=== PATIENT | male | born 1955 | race Caucasian/White ===

== ENCOUNTER 2018-02-04 12:41 | Inpatient (IN) | payer OTHER ==
[~2018-02-04] VITALS: Ht 180.3 cm; Wt 89.0 kg
[~2018-02-04 12:41] MED LIST: ASPEC325 PO; GABA-112 PO; MULT-506 PO; OXYC1TAB3 PO; QUET1TAB32 PO; SERT-234 PO
[2018-02-04] MEDS ORDERED: MoRPHine SULFATE 4 MG/ML 1 ML CARP\\VIAL IV STA (14:24)
[2018-02-04 14:49] LABS: BASO % 0.4 %; BASO ABS # 0.05 K/uL (0-0.2); EOS % 1.4 %; EOS ABS # 0.18 K/uL (0-0.5); HEMATOCRIT 40.2 % (42-52); HEMOGLOBIN 13.6 g/dL (14.0-18.0); IG# 0.05 K/uL (0.00-0.02); LYMPH % 18.5 %; LYMPH ABS # 2.41 K/uL (1.2-3.4); MEAN CELL VOLUME 97.8 fL (80-100); MEAN CORPUSCULAR HEMOGLOBIN 33.1 pg (25-34); MEAN CORPUSCULAR HGB CONC 33.8 g/dl (32-36); MONO % 4.3 %; MONO ABS # 0.56 K/uL (0.11-0.59); NEUT ABS # 9.75 K/uL (1.4-6.5); PLATELET COUNT 247 K/uL (130-400); RED CELL DISTRIBUTION WIDTH CV 12.9 % (11.5-14.5); RED CELL DISTRIBUTION WIDTH SD 46.3 fL (36.4-46.3)
[2018-02-04 15:08] LABS: BLOOD UREA NITROGEN 10 mg/dl (7-18); CREATININE 0.99 mg/dl (0.60-1.40); GLUCOSE 98 mg/dl (70-99)
[2018-02-04 15:09] LABS: ALBUMIN 3.9 gm/dl (3.4-5.0); ALT/SGPT 26 U/L (12-78); CARBON DIOXIDE 22 mmol/L (21-32); POTASSIUM 3.8 mmol/L (3.5-5.1); SODIUM 140 mmol/L (136-145)
[2018-02-04 15:13] LABS: ALKALINE PHOSPHATASE 83 U/L (45-117); AST/SGOT 19 U/L (15-37)
--- NOTE | 2018-02-04 15:43 | DIAGNOSTIC IMAGING REPORT ---
SINGLE VIEW PELVIS; SINGLE VIEW RIGHT HIP CLINICAL HISTORY: Fall with right leg pain. FINDINGS: An AP portable view view of the pelvis with an AP portable view of the right hip are correlated with pelvic CT dated 11/13/2014. The skeletal structures are osteopenic. There is a comminuted intertrochanteric fracture of the right femur with angulation and mild overriding of fragments. There is mild medial distraction of the lesser trochanter. Overlying soft tissue edema is noted. No fracture is seen involving the bony pelvis or the partially imaged left hip. Mild arthritic change and joint space narrowing is seen in the hips. Lumbosacral spondylosis is partially visualized. IMPRESSION: There is an angulated intertrochanteric fracture of the right femur as above with overlying soft tissue edema. Electronically signed by: Robert Heller M.D. 02/04/2018 3:41 PM Dictated Date/Time: 02/04/2018 3:40 PM
--- NOTE | 2018-02-04 15:45 | DIAGNOSTIC IMAGING REPORT ---
SINGLE VIEW CHEST CLINICAL HISTORY: Trauma. FINDINGS: 2 portable left lateral decubitus chest radiographs are compared to study dated 07/09/2016 and correlated with chest CT dated 09/13/2015. The examination is degraded by portable technique and decubitus position in. The cardiomediastinal silhouette is grossly unremarkable. The lungs and pleural spaces appear clear. The right lung appears hyperlucent secondary to left lateral decubitus positioning. No pleural effusion or pneumothorax is seen. The skeletal structures are osteopenic. The bony thorax is grossly intact. Degenerative changes noted throughout the thoracic spine. IMPRESSION: No acute cardiopulmonary abnormality is identified noting a degraded examination due to decubitus positioning. Electronically signed by: Robert Heller M.D. 02/04/2018 3:44 PM Dictated Date/Time: 02/04/2018 3:42 PM
[2018-02-04] MEDS ORDERED: SODIUM CHLORIDE 0.9% 1000ML 1,000 ML IV STA (15:57)
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
[2018-02-04] MEDS ORDERED: LORAZEPAM 2 MG/ML 1 ML VIAL IV STA (17:24)
[2018-02-04] MEDS ORDERED: LORAZEPAM 2 MG/ML 1 ML VIAL ONE (17:39)
[2018-02-04] MEDS ORDERED: GABAPENTIN 600 MG TAB PO SCH (17:45)
[2018-02-04] MEDS ORDERED: ONDANSETRON INJ 2 MG/ML 2 ML VIAL IV PRN (17:45)
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
[2018-02-04 19:01] VITALS: BP 147/87; PULSE 76; TEMP 36.8; O2SAT 98; Ht 180.3 cm; Wt 89.0 kg
[2018-02-04] MEDS ORDERED: THIAMINE HCL 100 MG TAB PO ONE (19:11)
[2018-02-04] MEDS: MoRPHine SULFATE 2 MG/ML CARP IV PRN (19:30)
[2018-02-04] MEDS ORDERED: MULTI-VITAMIN INFUSION INJ 10 ML, THIAMINE HCL INJ 100 MG, FoLIC ACID INJ 1 MG in SODIU... IV ONE (19:30)
[2018-02-04] MEDS ORDERED: GABAPENTIN 1200MG LOADING DOSE PO ONE (20:00)
[2018-02-04] MEDS: NICOTINE 21 MG/24 HR TDSY TD SCH (20:02)
--- NOTE | 2018-02-04 20:31 | DIAGNOSTIC IMAGING REPORT ---
R FEMUR 2 VIEWS ROUTINE HISTORY: 62 years-old Male Assess AP and Lateral of entire femur. Apply traction before. Acute fracture of the right femur. Follow-up study. COMPARISON: Pelvis and right hip radiographs of same day at 3:07 PM TECHNIQUE: 2 views of the right femur with traction FINDINGS: There is decreased angulation of the acute intertrochanteric fracture of the right femur there is 10 mm medial displacement of the fracture without significant angulation. Soft tissue swelling about the right hip and lateral right thigh redemonstrated. The remainder of the right femur appears intact. Right knee total joint arthroplasty. Peripheral vascular disease. IMPRESSION: Acute mildly displaced intratrochanteric fracture of the right femur with decreased angulation from comparison. The above report was generated using voice recognition software. It may contain grammatical, syntax or spelling errors. Electronically signed by: Romero Wick M.D. 02/04/2018 8:30 PM Dictated Date/Time: 02/04/2018 8:28 PM
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
[2018-02-04 23:20] VITALS: BP 149/83; PULSE 97; TEMP 37.2; O2SAT 97
[2018-02-05] VITALS (11 sets, daily range): BP systolic 136–184; BP diastolic 73–101; PULSE 73–90; TEMP 36.6–37.2; O2SAT 97–100
[2018-02-05] MEDS: MoRPHine SULFATE 2 MG/ML CARP IV PRN ×6 (00:18→23:31)
[2018-02-05] MEDS: LORAZEPAM 2 MG/ML 1 ML VIAL IV PRN ×6 (00:55→23:31)
[2018-02-05 06:00] LABS: HEMOGLOBIN 10.7 g/dL (14.0-18.0); MEAN CELL VOLUME 99.1 fL (80-100); MEAN CORPUSCULAR HEMOGLOBIN 33.1 pg (25-34); MEAN CORPUSCULAR HGB CONC 33.4 g/dl (32-36); MEAN PLATELET VOLUME 9.9 fL (7.4-10.4); PLATELET COUNT 175 K/uL (130-400); RED CELL DISTRIBUTION WIDTH CV 13.1 % (11.5-14.5); RED CELL DISTRIBUTION WIDTH SD 47.2 fL (36.4-46.3); WHITE BLOOD COUNT 9.14 K/uL (4.8-10.8)
[2018-02-05] MEDS: GABAPENTIN 600MG Q6H DOSE PO SCH ×2 (06:08→07:59)
[2018-02-05 06:29] LABS: CALCIUM 7.5 mg/dl (8.5-10.1); CREATININE 0.9 mg/dl (0.60-1.40); POTASSIUM 3.6 mmol/L (3.5-5.1)
[2018-02-05] MEDS: THIAMINE HCL 100 MG TAB PO SCH (07:55)
[2018-02-05] MEDS: NICOTINE 21 MG/24 HR TDSY TD SCH (07:58)
--- NOTE | 2018-02-05 08:46 | PROGRESS NOTE ---
DATE: 02/05/2018 CHIEF COMPLAINT: Right intertrochanteric hip fracture. PROGRESS: Momo was seen and examined at bedside today. Overall, he is doing fairly well. He is awake and alert. He says he has some soreness in his hip. Otherwise, he is ready to proceed with surgery today. He had no acute events overnight and has no complaints. OBJECTIVE: Physical examination of the right hip: He is lying with the head of the bed elevated. There were no abrasions, lesions, lacerations of the skin around the right hip and he is neurovascularly intact. LABORATORY DATA: His current labs, he has an H and H of 10.7 and 32.0. His calcium is 7.5. His vital signs are relatively stable on room air. He is a little hypertensive. IMPRESSION: Right intertrochanteric hip fracture. PLAN: He is currently n.p.o. He has been admitted to the medical service and they have cleared him for intramedullary nail fixation of his right hip for today. He is currently on the schedule, probably to be done this afternoon. We will continue n.p.o. status until then.
[2018-02-05] MEDS: HYDROCODONE/ACETAMIN 5/325MG TAB PO PRN ×2 (10:47→21:40)
[2018-02-05] MEDS ORDERED: FENTANYL CITRATE INJ 50 MCG/1 ML 2 ML VIAL ONE (13:34)
[2018-02-05] MEDS ORDERED: MIDAZOLAM HCL 1 MG/ML 2ML VIAL ONE (13:35)
--- NOTE | 2018-02-05 14:43 | History & Physical Bridge Note ---
H&P Re-Evaluation Bridge Note: I have examined the patient, reviewed the History & Physical and in the interval since the performance of the History & Physical I have noted the following changes of clinical significance: No changes noted
[2018-02-05] MEDS ORDERED: BUPIVACAINE/EPINEPHRINE 0.5% MPF 1:200,000 30 ML VIAL ONE (14:45)
[2018-02-05] MEDS ORDERED: LIDOCAINE HCL 2% 2 ML VIAL (20MG/ML) ONE (15:40)
[2018-02-05] MEDS ORDERED: ONDANSETRON INJ 2 MG/ML 2 ML VIAL ONE (15:40)
[2018-02-05] MEDS ORDERED: PROPOFOL IV EMULSION 10 MG/ML 20 ML VIAL IV ONE (15:40)
--- NOTE | 2018-02-05 16:13 | [facility] Post Operative Brief Note ---
Immediate Operative Summary Operative Date Feb 05, 2018. Pre-Operative Diagnosis Displaced right intertrochanteric hip fracture Post-Operative Diagnosis Displaced right intertrochanteric hip fracture Procedure(s) Performed Right Long Trochanteric Nail Surgeon Dr. Toy Zepeda Supervisor Mending Surgeon(s) Semaj Castano PA-C Estimated Blood Loss 50cc Findings Consistent with Post-Op Diagnosis Fluids (cc crystalloids) 1000 cc Specimens None Drains None Anesthesia Type Spinal MAC Complication(s) none Disposition Accompanied Pt To Recover: no Disposition: Recovery Room / PACU
[2018-02-05] MEDS ORDERED: CEFAZOLIN IV 2,000 MG in DEXTROSE 5% 50ML 50 ML IV SCH (16:15)
[2018-02-05] MEDS ORDERED: VANCOMYCIN CONSULT ACTIVE PRN (16:15)
[2018-02-05] MEDS ORDERED: BISACODYL 10 MG SUPP PR PRN (16:15)
--- NOTE | 2018-02-05 16:44 | DIAGNOSTIC IMAGING REPORT ---
R HIP OR FILMS CLINICAL HISTORY: RT TROCH NAIL COMPARISON STUDY: Right femur radiographs February 05, 2018. FLUOROSCOPY TIME: 1 minute and 29 seconds. FINDINGS: 4 fluoroscopic images demonstrate placement of a trochanteric needle which fixates the intertrochanteric fracture of the right femur. Fracture alignment has improved and is now near anatomic. The hardware is intact. There are no unexpected radiopaque foreign bodies. Distal screw is noted. Right knee arthroplasty is partially imaged. IMPRESSION: Expected findings following internal fixation of the intertrochanteric fracture of the right femur. Electronically signed by: Oziel Franco M.D. 02/05/2018 4:43 PM Dictated Date/Time: 02/05/2018 4:42 PM
[2018-02-05] MEDS ORDERED: VANCOMYCIN IV 1,250 MG in SODIUM CHLORIDE 0.9% 250ML 250 ML IV SCH (16:45)
--- NOTE | 2018-02-05 16:57 | Anesthesiology Progress Note ---
Anesthesia Post Op Note Date & Time Feb 05, 2018 at 16:57 Vital Signs Pain Intensity: 0 Vital Signs Past 12 Hours Date Time Temp Pulse Resp B/P (MAP) Pulse Ox O2 Delivery O2 Flow Rate FiO2 02/05/18 16:55 37.2 68 16 147/88 100 Nasal Cannula 2 02/05/18 16:45 37.2 65 16 152/86 100 Nasal Cannula 2 02/05/18 16:35 66 16 152/86 100 Nasal Cannula 2 02/05/18 16:25 67 16 148/85 100 Nasal Cannula 2 02/05/18 16:16 36.9 74 16 140/81 100 Oxymask 10 02/05/18 12:06 36.8 88 20 158/101 (120) 99 Room Air 02/05/18 12:00 Room Air 02/05/18 08:00 Room Air 02/05/18 07:34 36.8 78 24 181/97 (125) 99 Room Air Notes Mental Status: alert / awake / arousable, participated in evaluation Pt Amnestic to Procedure: Yes Nausea / Vomiting: adequately controlled Pain: adequately controlled Airway Patency, RR, SpO2: stable & adequate BP & HR: stable & adequate Hydration State: stable & adequate Neuraxial Anesthesia: was administered, sensory block is resolving Anesthetic Complications: no major complications apparent
[2018-02-05] MEDS ORDERED: ATROPINE SULFATE 0.1 MG/ML 5ML SYR IV PRN (17:00)
[2018-02-05] MEDS ORDERED: EpHEDrine SULFATE INJ 50 MG/ML AMP IV PRN (17:00)
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
[2018-02-05] MEDS: DOCUSATE SODIUM/SENNA 50/8.6MG TAB PO SCH (21:08)
[2018-02-05] MEDS: GABAPENTIN 600MG Q8H DOSE PO SCH (21:39)
[2018-02-05] MEDS: CEFAZOLIN IV 2,000 MG in SYRINGE 0 ML IV SCH (23:51)
[2018-02-06] VITALS (7 sets, daily range): BP systolic 116–184; BP diastolic 67–104; PULSE 94–111; TEMP 36.7–37.4; O2SAT 97–100
[2018-02-06] MEDS: LORAZEPAM 2 MG/ML 1 ML VIAL IV PRN ×5 (02:04→21:47)
[2018-02-06] MEDS: HYDROCODONE/ACETAMIN 5/325MG TAB PO PRN (04:04)
[2018-02-06] MEDS: MoRPHine SULFATE 2 MG/ML CARP IV PRN ×5 (04:04→20:49)
[2018-02-06] MEDS: GABAPENTIN 600MG Q8H DOSE PO SCH ×2 (06:33→15:00)
[2018-02-06 06:38] LABS: HEMATOCRIT 28.4 % (42-52); HEMOGLOBIN 9.7 g/dL (14.0-18.0); MEAN CELL VOLUME 97.9 fL (80-100); MEAN CORPUSCULAR HEMOGLOBIN 33.4 pg (25-34); MEAN CORPUSCULAR HGB CONC 34.2 g/dl (32-36); MEAN PLATELET VOLUME 9.9 fL (7.4-10.4); PLATELET COUNT 153 K/uL (130-400); RED CELL DISTRIBUTION WIDTH CV 12.8 % (11.5-14.5); RED CELL DISTRIBUTION WIDTH SD 45.7 fL (36.4-46.3); WHITE BLOOD COUNT 11.16 K/uL (4.8-10.8)
[2018-02-06 07:08] LABS: CALCIUM 8.3 mg/dl (8.5-10.1); CREATININE 0.93 mg/dl (0.60-1.40)
[2018-02-06] MEDS: THIAMINE HCL 100 MG TAB PO SCH (07:59)
[2018-02-06] MEDS: NICOTINE 21 MG/24 HR TDSY TD SCH (07:59)
[2018-02-06] MEDS: CEFAZOLIN IV 2,000 MG in SYRINGE 0 ML IV SCH (08:04)
--- NOTE | 2018-02-06 08:30 | PROGRESS NOTE ---
DATE: 02/06/2018 SUBJECTIVE: A 62-year-old gentleman postop day 1 from IM nailing of a right intertroch/subtroch fracture. He is doing much better this morning. Pain is much improved. He is eating his breakfast and looks pretty comfortable. OBJECTIVE: VITAL SIGNS: Temperature 37.0. Vital signs stable. He has been hypertensive. GENERAL: Physical exam reveals a pleasant, middle-aged male. He is sitting up in bed and looks completely comfortable, eating his breakfast. EXTREMITIES: Examination of the right leg reveals the leg to be well aligned. Dressings are clean, dry and intact. He can dorsiflex and plantarflex his foot appropriately. He is neurologically intact. LABORATORY DATA: Hemoglobin is 9.7. Hematocrit 28.4. Electrolytes are stable. White cell count is slightly elevated at 11.16. ASSESSMENT: A 62-year-old gentleman postop day 1 from IM nailing of a right intertroch/subtroch fracture, doing pretty well. His hemoglobin is stable. He is anemic, but without symptoms and he should tolerate that well. His pain is much improved. White counts elevated, likely related to stress. No signs of infection. PLAN: 1. DVT prophylaxis including thigh-high TEDs, SCDs, and I would recommend Lovenox once a day in the hospital. Upon discharge if he goes home, I do not think it is safe for him to go home on Lovenox and we best to just put him on aspirin 81 mg twice a day. If he goes to rehab or usp facility, I would recommend 2 weeks of Lovenox at q. 24 hours. I do think he has had a significant fall risk due to his excessive alcohol use. 2. PT/OT. Weight bear on the right lower extremity as tolerated. 3. Pain control, doing well with current pain regimen. 4. Disposition: Disposition is going to be difficult for this gentleman. I think it would be best served by a rehab stay and alcohol detox, but I suspect he is not going to have any of that. We talked about rehab and he says he wants to just go home. We will get him into therapy and see how he does. I think he has had a significant fall risk going home. I need to see him back 2 weeks out from surgery. Any orthopedic questions can be directed to me at [phone].
[2018-02-06] MEDS ORDERED: OXYCODONE HCL IR 5 MG TAB (IMMEDIATE RELEASE) ONE (09:52)
--- NOTE | 2018-02-06 14:15 | Anesthesiology Progress Note ---
Anesthesia Post Op Note Date & Time Feb 06, 2018 at 14:15 Vital Signs Vital Signs Past 12 Hours Date Time Temp Pulse Resp B/P (MAP) Pulse Ox O2 Delivery O2 Flow Rate FiO2 02/06/18 12:02 36.8 103 24 184/67 (106) 100 Room Air 02/06/18 12:00 Room Air 02/06/18 08:00 Room Air 02/06/18 07:39 37.0 94 18 163/99 (120) 97 Room Air 02/06/18 04:53 36.7 95 19 170/99 (122) 97 Room Air 02/06/18 04:00 Room Air Notes Mental Status: alert / awake / arousable, participated in evaluation Pt Amnestic to Procedure: Yes Nausea / Vomiting: adequately controlled Pain: adequately controlled Airway Patency, RR, SpO2: stable & adequate BP & HR: stable & adequate Hydration State: stable & adequate Neuraxial Anesthesia: sensory block resolved Anesthetic Complications: no major complications apparent
[2018-02-06] MEDS: OXYCODONE HCL IR 5 MG TAB (IMMEDIATE RELEASE) PO PRN ×2 (15:01→20:49)
[2018-02-06] MEDS: BOOST VANILLA PO SCH (16:45)
[2018-02-06] MEDS: ENOXAPARIN 40 MG/0.4 ML SYR SQ SCH (16:45)
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
[2018-02-06] MEDS: DOCUSATE SODIUM/SENNA 50/8.6MG TAB PO SCH (20:51)
[2018-02-07] VITALS (7 sets, daily range): BP systolic 117–170; BP diastolic 75–95; PULSE 93–126; TEMP 36.5–37.6; O2SAT 95–97
[2018-02-07] MEDS: GABAPENTIN 600MG Q12H DOSE PO SCH ×2 (00:27→12:02)
[2018-02-07] MEDS: NICOTINE 21 MG/24 HR TDSY TD SCH (05:12)
[2018-02-07] MEDS: POLYETHYLENE (MIRALAX) 17 GM PACK PO SCH ×3 (05:13→15:52)
[2018-02-07] MEDS: OXYCODONE HCL IR 5 MG TAB (IMMEDIATE RELEASE) PO PRN ×3 (07:28→18:58)
[2018-02-07] MEDS: THIAMINE HCL 100 MG TAB PO SCH (07:29)
[2018-02-07] MEDS: BOOST VANILLA PO SCH ×2 (07:30→15:55)
[2018-02-07] MEDS: LORAZEPAM 2 MG/ML 1 ML VIAL IV PRN ×2 (09:13→14:29)
--- NOTE | 2018-02-07 09:21 | Orthopedic Progress Note ---
Orthopedic Progress Note Date of Service Feb 07, 2018. Subjective Additional Notes: POD #2 from IM nailing of right hip/femur fx. He is having quite a bit of pain and difficulty with movement. He asked about removing the hardware. He is open to d/c to rehab instead of home now. Objective Date Time Temp Pulse Resp B/P (MAP) Pulse Ox O2 Delivery O2 Flow Rate FiO2 02/07/18 09:02 126 20 144/83 (103) 95 Room Air 02/07/18 08:00 Room Air 02/07/18 07:04 36.9 97 20 170/95 (120) 96 Room Air 02/07/18 04:23 36.6 93 19 131/83 (99) 95 Room Air 02/07/18 04:00 Room Air 02/07/18 00:00 Room Air 02/06/18 23:43 36.8 108 17 116/82 (93) 97 Room Air 02/06/18 20:00 Room Air 02/06/18 19:25 37.4 111 20 144/85 (104) 98 Room Air 02/06/18 16:00 Room Air 02/06/18 15:52 37.1 96 20 183/94 (123) 98 Room Air 02/06/18 12:02 36.8 103 24 184/67 (106) 100 Room Air 02/06/18 12:00 Room Air Additional Notes: He's A/O, NAD. Dressing to RLE clean, dry, intact. He has tenderness generalized along his thigh. +knee effusion. Cannot do a straight leg raise yet. He's able to DF/PF, sensation intact. Assessment & Plan Assessment: POD #2 from IM nailing of right femur. Discharge Planning Discharge Planning: other (social service for possible d/c to rehab when medically ready for d/c ) Pain Management: other (continue current pain management and medical management. ) DVT Prophylaxis: TEDs, SCDs, Lovenox Therapy: Physical Therapy ([facility]), Occupational Therapy
[2018-02-07] MEDS: MoRPHine SULFATE 2 MG/ML CARP IV PRN ×3 (10:34→20:15)
[2018-02-07] MEDS: ENOXAPARIN 40 MG/0.4 ML SYR SQ SCH (15:52)
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
--- NOTE | 2018-02-07 18:18 | PROGRESS NOTE ---
DATE: 02/07/2018 CHIEF COMPLAINT: Status post IM nail of the right femur, postop day #2. PROGRESS: Momo was seen and examined at bedside today. Overall, he is doing fairly well. He says he has some pain in the hip and little pain in the superior aspect of his knee, but he has been up and ambulating well. He has only ambulated a few feet, but is unable to get around this room some. His pain is relatively well controlled. He has no other complaints. PHYSICAL EXAMINATION: RIGHT HIP: The dressing is clean and dry. His leg lengths are equal. He has active dorsiflexion, plantar flexion of his right ankle. RIGHT KNEE: On examination of his right knee, there is no effusion or signs of infection. He has decent range of motion. All of his pain is located at the distal aspect of his femur. He has no pain around the tibia. I think his pain is coming from the distal portion of the ronel. IMPRESSION: Status post intramedullary nail of the right hip, postop day #2. PLAN: At this point, he is doing about as well as expected. I encouraged him to continue to be up and ambulating. We will keep him on Lovenox for now during this hospital stay and we recommend Lovenox daily for 2 weeks if he goes to a rehab facility, but aspirin 81 twice a day, if he goes home. I do not think he will be compliant with the Lovenox. We will continue thigh-high TEDs stockings and SCDs throughout his admission. He is currently awaiting discharge to [facility] on Saturday.
[2018-02-07] MEDS: DOCUSATE SODIUM/SENNA 50/8.6MG TAB PO SCH (18:58)
[2018-02-08] VITALS (9 sets, daily range): BP systolic 134–157; BP diastolic 77–93; PULSE 85–107; TEMP 36.5–37.2; O2SAT 93–97
[2018-02-08] MEDS: OXYCODONE HCL IR 5 MG TAB (IMMEDIATE RELEASE) PO PRN ×4 (00:38→19:15)
[2018-02-08] MEDS: MoRPHine SULFATE 2 MG/ML CARP IV PRN ×3 (03:30→23:42)
[2018-02-08] MEDS: POLYETHYLENE (MIRALAX) 17 GM PACK PO SCH ×4 (06:00→17:06)
[2018-02-08] MEDS: BOOST VANILLA PO SCH ×2 (07:54→17:06)
[2018-02-08] MEDS: THIAMINE HCL 100 MG TAB PO SCH (07:55)
[2018-02-08] MEDS: NICOTINE 21 MG/24 HR TDSY TD SCH (07:55)
[2018-02-08] MEDS ORDERED: GABAPENTIN 600MG X1 DOSE PO SCH (12:00)
[2018-02-08] MEDS: ENOXAPARIN 40 MG/0.4 ML SYR SQ SCH (15:58)
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
[2018-02-08] MEDS: DOCUSATE SODIUM/SENNA 50/8.6MG TAB PO SCH (20:39)
[2018-02-09] MEDS: POLYETHYLENE (MIRALAX) 17 GM PACK PO SCH ×3 (05:54→12:00)
[2018-02-09] MEDS: OXYCODONE HCL IR 5 MG TAB (IMMEDIATE RELEASE) PO PRN ×5 (05:57→22:23)
[2018-02-09] MEDS: NICOTINE 21 MG/24 HR TDSY TD SCH (07:34)
[2018-02-09 07:43] VITALS: BP 132/77; PULSE 79; TEMP 36.7; O2SAT 91
[2018-02-09 07:57] LABS: BASO % 0.3 %; BASO ABS # 0.03 K/uL (0-0.2); EOS % 5.3 %; EOS ABS # 0.57 K/uL (0-0.5); HEMATOCRIT 26.9 % (42-52); IG# 0.06 K/uL (0.00-0.02); LYMPH % 15.3 %; LYMPH ABS # 1.63 K/uL (1.2-3.4); MEAN CELL VOLUME 100.4 fL (80-100); MEAN CORPUSCULAR HEMOGLOBIN 33.6 pg (25-34); MEAN CORPUSCULAR HGB CONC 33.5 g/dl (32-36); MEAN PLATELET VOLUME 9.9 fL (7.4-10.4); MONO % 7.6 %; MONO ABS # 0.81 K/uL (0.11-0.59); NEUT % 70.9 %; NEUT ABS # 7.56 K/uL (1.4-6.5); PLATELET COUNT 184 K/uL (130-400); RED CELL DISTRIBUTION WIDTH CV 13.2 % (11.5-14.5); RED CELL DISTRIBUTION WIDTH SD 47.6 fL (36.4-46.3); WHITE BLOOD COUNT 10.66 K/uL (4.8-10.8)
[2018-02-09] MEDS: ONDANSETRON INJ 2 MG/ML 2 ML VIAL IV PRN ×2 (08:02→14:03)
[2018-02-09] MEDS: BOOST VANILLA PO SCH ×2 (08:11→17:00)
[2018-02-09] MEDS: THIAMINE HCL 100 MG TAB PO SCH (08:11)
[2018-02-09 08:20] LABS: CALCIUM 8.3 mg/dl (8.5-10.1); CREATININE 0.93 mg/dl (0.60-1.40); POTASSIUM 3.9 mmol/L (3.5-5.1)
--- NOTE | 2018-02-09 08:53 | PROGRESS NOTE ---
DATE: 02/09/2018 CHIEF COMPLAINT: Status post IM nail of the right hip, postop day #4. PROGRESS: Momo was seen and examined at bedside today. Overall, he continues to do fairly well. He walked about 15 feet yesterday with physical therapy. He says the hardest part is getting up out of bed. He is optimistic and feels he is making good recovery to this point. PHYSICAL EXAMINATION: RIGHT HIP: The dressings are clean and dry and will need changed today. His legs out in full extension. He has active dorsiflexion, plantar flexion of his right ankle. LABS: H and H today and PRP are still pending. IMPRESSION: Status post intramedullary nail of the right hip, postop day #4. PLAN: He continues to do well as what was expected. He is on Lovenox during his hospital stay and we recommend Lovenox daily for 2 weeks if he goes to rehab facility, but aspirin 81 mg twice a day if he goes home. I do not think he will be compliant with Lovenox at home. Will continue MATEO stockings and SCDs throughout his admission. We were planning for discharge to [facility] on Saturday.
[2018-02-09 15:20] VITALS: BP 135/81; PULSE 91; TEMP 36.7; O2SAT 96
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
[2018-02-09] MEDS: ENOXAPARIN 40 MG/0.4 ML SYR SQ SCH (17:12)
[2018-02-09] MEDS: DOCUSATE SODIUM/SENNA 50/8.6MG TAB PO SCH (21:00)
[2018-02-09 23:31] VITALS: BP 133/77; PULSE 81; TEMP 37.4; O2SAT 93
[2018-02-10] MEDS: OXYCODONE HCL IR 5 MG TAB (IMMEDIATE RELEASE) PO PRN ×3 (02:39→11:08)
[2018-02-10 07:44] VITALS: BP 128/79; PULSE 82; TEMP 36.6; O2SAT 96
[2018-02-10] MEDS: ONDANSETRON INJ 2 MG/ML 2 ML VIAL IV PRN (08:09)
[2018-02-10] MEDS: NICOTINE 21 MG/24 HR TDSY TD SCH (08:09)
[2018-02-10] MEDS: THIAMINE HCL 100 MG TAB PO SCH (08:10)
[2018-02-10] MEDS: BOOST VANILLA PO SCH (08:52)
[2018-02-10] MEDS ORDERED: POLYETHYLENE (MIRALAX) 17 GM PACK PO PRN (09:00)
[2018-02-10 11:47] VITALS: BP 128/79; PULSE 82; TEMP 36.6; O2SAT 96
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
[2018-02-10] MEDS ORDERED: THM100 PO (12:08)
[2018-02-10] MEDS ORDERED: LVNIS40 SQ (12:08)
[2018-02-10] MEDS ORDERED: RXC5 PO (12:08)
[2018-02-10] MEDS ORDERED: Boost PO (12:08)
[2018-02-10] MEDS ORDERED: NICO21DI4 TD (12:08)
[2018-02-10] MEDS ORDERED: MULTTAB PO (12:08)
--- NOTE | 2018-02-10 12:11 | Discharge Instructions ---
Discharge Instructions Date of Service Feb 10, 2018. Admission Reason for Admission: Alcohol Intoxication, Intertrochanteric Fracture Discharge Discharge Diagnosis / Problem: Right Intertrochanteric fx. alochol intoxication Discharge Goals Goal(s): Decrease discomfort, Improve function Activity Recommendations Activity Level: Assistance Required Therapies: Physical Therapy, Weight Bearing Status (Rt Lower extremity weight bearing as tolerated), Occupational Therapy Weightbearing Status: Right weightbearing (as tolerated) . Additional Information Patient informed of condition: Yes Advance Directives: No DNR: No Level of Care: Acute Rehab Communicable Disease: No Prognosis: Stable Moncada Catheter: No Instructions / Follow-Up Instructions / Follow-Up FOLLOWUP WITH FAMILY DOCTOR IN ONE WEEK ON DISCHARGE FOLLOWUP WITH ORTHOPEDICS IN 1-2 WEEKS STRONGLY ADVICE FOR ALCOHOL AND SMOKING CESSATION ORTHO RECOMMENDS 2 WEEKS OF LOVENOX ON DISCHARGE TO REHAB OR ASPIRIN 81MG PO TWICE DAILY ON DISCHARGE TO HOME Current Hospital Diet Patient's current hospital diet: Regular Diet Discharge Diet Recommended Diet: Regular Diet Procedures Procedures Performed: Right Long Trochanteric Nail Pending Studies Studies pending at discharge: no Physician Orders On Transfer Special Precautions: FALL AND ASPIRATION PRECAUTIONS Vital Signs: EVERY 8HRS Medical Emergencies . Who to Call and When: Medical Emergencies: If at any time you feel your situation is an emergency, please call 911 immediately. . Non-Emergent Contact Non-Emergency issues call your: Primary Care Provider . . "Provider Documentation" section prepared by Gato Simpson. . Core Measure Problem Core Measures: None
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
== END 2018-02-10 13:52 | DRG 481 ==
LOC: EDBD 12:41 → C.EDB 12:42 → UNDOADMIN 17:21 → C.2T 17:21 → ENRESERV 17:33 → C.MSW 02-08 11:52
PROVIDERS: ADMIT Hospitalist; ATTEND Internal Medicine
PROC: 0QS606Z Reposition Right Upper Femur with Intramedullary Internal Fixation Device, Open Approach (ICD-10-PCS; principal; 2018-02-04)
DX: S72.141A Displaced intertrochanteric fracture of right femur, initial encounter for closed fracture (principal); F10.239 Alcohol dependence with withdrawal, unspecified; W03.XXXA Other fall on same level due to collision with another person, initial encounter; F39 Unspecified mood [affective] disorder; Z86.14 Personal history of Methicillin resistant Staphylococcus aureus infection; F41.9 Anxiety disorder, unspecified; F17.200 Nicotine dependence, unspecified, uncomplicated; F32.9 Major depressive disorder, single episode, unspecified; Z86.711 Personal history of pulmonary embolism; Z96.652 Presence of left artificial knee joint; Z82.49 Family history of ischemic heart disease and other diseases of the circulatory system

== ENCOUNTER → 2018-02-12 | Outpatient (CLI) | payer OTHER ==
[~2018-02-12] MED LIST changes: -ASPEC325 PO; +Boost PO; -GABA-112 PO; +LVNIS40 SQ; -MULT-506 PO; +MULTTAB PO; +NICO21DI4 TD; -OXYC1TAB3 PO; -QUET1TAB32 PO; +RXC5 PO; -SERT-234 PO; +THM100 PO
[2018-02-12 08:41] LABS: BASO % 0.5 %; BASO ABS # 0.04 K/uL (0-0.2); EOS % 6.2 %; EOS ABS # 0.48 K/uL (0-0.5); HEMATOCRIT 29.2 % (42-52); HEMOGLOBIN 9.5 g/dL (14.0-18.0); IG# 0.05 K/uL (0.00-0.02); LYMPH % 20.7 %; LYMPH ABS # 1.61 K/uL (1.2-3.4); MEAN CELL VOLUME 102.5 fL (80-100); MEAN CORPUSCULAR HEMOGLOBIN 33.3 pg (25-34); MEAN CORPUSCULAR HGB CONC 32.5 g/dl (32-36); MONO % 13.8 %; MONO ABS # 1.07 K/uL (0.11-0.59); NEUT % 58.2 %; NEUT ABS # 4.52 K/uL (1.4-6.5); PLATELET COUNT 320 K/uL (130-400); RED CELL DISTRIBUTION WIDTH CV 13.7 % (11.5-14.5); RED CELL DISTRIBUTION WIDTH SD 49.7 fL (36.4-46.3); WHITE BLOOD COUNT 7.77 K/uL (4.8-10.8)
[2018-02-12 08:51] LABS: BLOOD UREA NITROGEN 15 mg/dl (7-18); CALCIUM 8.8 mg/dl (8.5-10.1); CARBON DIOXIDE 26 mmol/L (21-32); CHOLESTEROL 177 mg/dl (0-200); CREATININE 0.91 mg/dl (0.60-1.40); GLUCOSE 106 mg/dl (70-99); POTASSIUM 3.8 mmol/L (3.5-5.1); SODIUM 139 mmol/L (136-145)
[2018-02-12 09:06] LABS: LDL CHOLESTEROL CALCULATED 104 mg/dl
== END | disposition home or self-care (01) ==
LOC: C.LABCC 08:25
PROVIDERS: ATTEND Internal Medicine
DX: D64.9 Anemia, unspecified (principal); F10.10 Alcohol abuse, uncomplicated; E78.5 Hyperlipidemia, unspecified